=== PATIENT | female | born 1960 | race Caucasian/White ===

== ENCOUNTER 2019-10-03 16:21 | Emergency (ER) | payer OTHER ==
[2019-10-03] MEDS: Lidocaine 1% 20 ML MDV INJECT ONE (16:30)
[2019-10-03 16:37] VITALS: BP 151/83; PULSE 99
[2019-10-03] MEDS: Lidocaine/Prilocaine 2.5-2.5% Crm 5 GM Tube TOP ONE (16:41)
[2019-10-03] MEDS: Bupivacaine 0.5% 10 ML SDV INJECT ONE (16:41)
--- NOTE | 2019-10-03 17:42 | EDM.PDOC ---
ED HPI GENERAL MEDICAL PROBLEM - General Stated Complaint: LIP BLEEDING Time Seen by Provider: 10/03/19 16:30 Source of Information: Reports: Patient History Limitations: Reports: No Limitations - History of Present Illness INITIAL COMMENTS - FREE TEXT/NARRATIVE: Mallory is a 59 yo female who presents to ED with lip laceration. She reports she slipped in the shower and landed on her face. Denies any LOC, headache, dizziness, N/V. No complaints other than lip laceration. Onset: Today, Sudden Onset Date: 10/03/19 Onset Time: 15:45 Location: Reports: Other (left lower lip) Quality: Reports: Sharp Severity: Moderate Associated Symptoms: Reports: No Other Symptoms - Related Data Allergies Allergy/AdvReac Type Severity Reaction Status Date / Time tetracycline Allergy Hives Verified 10/03/19 16:25 Home Meds: Home Meds Cyproheptadine HCl 12 mg PO BEDTIME 10/03/19 [History] Escitalopram Oxalate [Lexapro] 10 mg PO DAILY 10/03/19 [History] Famciclovir 250 mg PO BID 10/03/19 [History] OXcarbazepine [Oxcarbazepine] 300 mg PO DAILY 10/03/19 [History] Spironolactone 50 mg PO DAILY 10/03/19 [History] Thyroid,Pork [Nature-Throid] 97.5 mg PO DAILY 10/03/19 [History] Topiramate [Topamax] 25 mg PO BID 10/03/19 [History] ED ROS ENT - Review of Systems Review Of Systems: Comprehensive ROS is negative, except as noted in HPI. ED EXAM, ENT - Physical Exam Exam: See Below Exam Limited By: No Limitations General Appearance: Alert, WD/WN, No Apparent Distress Eye Exam: Bilateral Eye: EOMI, Normal Fundi, Normal Inspection Ears: Normal External Exam, Normal Canal, Hearing Grossly Normal, Normal TMs Nose: Normal Inspection, Normal Mucousa, Dried Blood Mouth/Throat: Normal Gums, Normal Oropharynx, Normal Teeth, Lip Swelling, Other (2 CM laceration to left lower lip). No: Dental Tenderness, Dental Trauma, Gum Swelling Head: Atraumatic, Normocephalic Neck: Normal Inspection, Supple, Non-Tender, Full Range of Motion Neurological: Alert, Oriented, CN II-XII Intact, Normal Cognition, Normal Gait, Normal Reflexes, No Motor/Sensory Deficits Psychiatric: Normal Affect, Normal Mood Skin: Wound/Incision (2 cm laceration to left posterior lip) ED ENT PROCEDURES - Laceration/Wound Repair Left Lower Mouth Lac/wound length in cm: 2 Appearance: Subcutaneous, Irregular, Clean Anesthetic Type: Local Local Anesthesia - Bupivicaine (Marcaine): 0.5% Plain Local Anesthetic Volume: 3cc Skin Prep: Providone-Iodine (Betadine), Saline Saline irrigation (cc's): 20 Exploration/Debridement/Repair: Wound Explored Suture Size: 6-0 # of Sutures: 7 Suture Type: Nylon, Interrupted, Simple Tetanus Status Addressed: Yes (Up to date per patient report) Complications: None Progress/Comments: Patient tolerated well. Course - Vital Signs Last Recorded V/S: Last Vital Signs Temp 99 F 10/03/19 16:30 Pulse 99 10/03/19 16:30 Resp 20 10/03/19 16:30 BP 151/83 H 10/03/19 16:30 Pulse Ox 98 10/03/19 16:30 - Orders/Labs/Meds Meds: Medications Discontinued Medications Generic Name Dose Route Start Last Admin Trade Name Allison PRN Reason Stop Dose Admin Bupivacaine HCl 10 ml 10/03/19 16:39 10/03/19 16:41 Sensorcaine-Mpf 0.5% INJECT 10/03/19 16:40 10 ml ONETIME ONE Administration Lidocaine HCl 20 ml 10/03/19 16:27 10/03/19 16:30 Xylocaine 1% INJECT 10/03/19 16:28 20 ml ONETIME ONE Administration Lidocaine/Prilocaine 1 gm 10/03/19 16:39 10/03/19 16:41 [facility] 10/03/19 16:40 1 applic ONETIME ONE Administration - Re-Assessments/Exams Free Text/Narrative Re-Assessment/Exam: PLEASE SEE NURSES NOTE FOR PMH, PSH, SH & FH. Departure - Departure Time of Disposition: 17:42 Disposition: Home, Self-Care 01 Condition: Good Clinical Impression: Lip laceration Qualifiers: Encounter type: initial encounter Qualified Code(s): S01.511A - Laceration without foreign body of lip, initial encounter - Discharge Information *PRESCRIPTION DRUG MONITORING PROGRAM REVIEWED*: Not Applicable *COPY OF PRESCRIPTION DRUG MONITORING REPORT IN PATIENT EUN: Not Applicable Instructions: Mouth Laceration Referrals: PCP,Not In Area [Primary Care Provider] - Forms: ED Department Discharge Additional Instructions: - Ice affected area frequently throughout the next 24 hours to reduce swelling - Alternate Tylenol 500 mg and ibuprofen 600 mg as needed for pain - Recommend suture removal 5-7 days - Monitor for s/s of infection (redness, increased pain, drainage) and follow up if any concerns - Follow up as needed - Patient and verbalized understanding and were agreeable with plan. Sepsis Event Note (ED) - Evaluation Sepsis Screening Result: No Definite Risk - Focused Exam Vital Signs: Vital Signs Temp Pulse Resp BP Pulse Ox 10/03/19 16:30 99 F 99 20 151/83 H 98
== END 2019-10-03 17:50 | disposition home or self-care (01) ==
LOC: CC.ED 16:21
DX: S01.511A Laceration without foreign body of lip, initial encounter (principal); Z88.1 Allergy status to other antibiotic agents; Z79.899 Other long term (current) drug therapy; W01.0XXA Fall on same level from slipping, tripping and stumbling without subsequent striking against object, initial encounter
CPT/HCPCS: 12011; 99282; A9270-GY; J2001; J3490